=== PATIENT | male | born 1940 | race Caucasian/White ===

== ENCOUNTER → 2019-06-08 11:04 | Outpatient (CLI) | payer MEDICARE, SELFPAY ==
--- NOTE | ~2019-06-08 | XR_ITS ---
EXAMINATION: XR chest 2V DATE: 06/08/2019 11:24 INDICATION: Left chest pain. TECHNIQUE: Frontal and lateral views of the chest were obtained. COMPARISON: Chest 2 views 01/22/2019, chest CT 08/27/2004 FINDINGS: Calcified right lung nodules are consistent with old granulomatous disease. There is mild a telectasis versus scarring in the lower lung zones. No pleural effusion or pneumothorax. The heart si ze is normal. IMPRESSION: 1. Mild atelectasis versus scarring in the lower lung zones. Reviewed, dictated and finalized at location B. R HOUSE SUPERVISOR
== END ==
PROVIDERS: PCP Family Medicine; Visit Provider Family Medicine
DX: R07.89 Other chest pain (principal); R91.8 Other nonspecific abnormal finding of lung field
CPT/HCPCS: 71046

== ENCOUNTER 2020-05-08 08:38 | Outpatient (CLI) | payer MEDICARE, SELFPAY ==
--- NOTE | ~2020-05-08 | NM_ITS ---
EXAMINATION: NM bone scan whole body DATE: 05/08/2020 12:39 INDICATION: Prostate cancer TECHNIQUE: 23.6 mCi Tc-99m HDP was administered intravenously. Delayed whole-body scintigrams were o btained. COMPARISON: CT dated 05/08/2020 FINDINGS: Photopenic defect at the left knee consistent with a total knee arthroplasty. Likely degenerative gloria nt centered uptake most prominent at the bilateral carpi and a left-sided lower cervical facet joint and to a lesser degree at the lateral compartment of the right knee, right medial malleolus and bilat eral elbow, acromioclavicular and sternoclavicular articulations. Mild uptake bilaterally at the lumb osacral junction likely resulting from the L5 spondylolysis with severe associated spondylosis as see n on prior CT. No other suspicious foci to suggest metastatic disease. IMPRESSION: 1. No evident metastatic disease. Reviewed, dictated and finalized at location A. ELIFT OPERATOR
--- NOTE | ~2020-05-08 | CT_ITS ---
EXAMINATION: CT abdomen pelvis w con EXAM DATE: 05/08/2020 09:19 INDICATION: Prostate cancer. TECHNIQUE: Spiral CT of the abdomen and pelvis was performed following intravenous injection of 100 m L Omnipaque 350. Axial, coronal and sagittal images were reviewed. The dose-length product (DLP) fo r this examination was 755.74 mGy-cm. The exposure was tailored according to patient size (auto mA e xposure control), and iterative reconstruction (ASIR) was used as additional dose reduction technique . There is no prior study for comparison. FINDINGS: Mild nodularity to both adrenal glands, most likely hyperplasia or possibly small adenomas. The liver, spleen, adrenal glands and pancreas are unremarkable. Gallbladder is unremarkable. No biliary obstruction. Portal and splenic veins are patent. Kidneys enhance symmetrically. There is no hydronephrosis. The prostate is unremarkable. The bladder is unremarkable. There is no retrope ritoneal or pelvic lymphadenopathy. There is moderate scattered arteriosclerotic disease. The appendix is normal. The stomach and small bowel are unremarkable. There is expected amount of c olonic stool. There is moderate sigmoid colonic diverticulosis. There is no adjacent inflammatory ch crystal to suggest diverticulitis. No free intraperitoneal gas. The heart is normal in size. There a re no pericardial or pleural effusions. Bibasilar linear scarring or atelectasis. There are no oste oblastic or osteolytic lesions identified. There is bilateral L5 spondylolysis with grade 2 anterolis thesis L5 on S1. Healed bilateral inferior rami fractures. IMPRESSION: 1. No evidence of metastatic disease. 2. Sigmoid diverticulosis. Reviewed, dictated and finalized at location A. CLEANER OPERATOR
--- NOTE | ~2020-05-08 | XR_ITS ---
EXAMINATION: XR chest 2V EXAM DATE: 05/08/2020 09:04 INDICATION: Prostate cancer. TECHNIQUE: Frontal and lateral projections of the chest obtained and reviewed. Comparison is made to prior examination from 06/08/2019. FINDINGS: Small linear basilar opacities unchanged, probably scarring. Several calcified right upper lobe granulomas. The lungs are otherwise clear. Cardiomediastinal silhouette is normal. There is no pneumothorax suspected. There are no pleural effusions. There are mild bony degenerative changes. The re are no osteoblastic or osteolytic lesions identified. IMPRESSION: Chronic infectious residua. Reviewed, dictated and finalized at location A. EMS INTEGRATION MANAGER IMPRESSION: Chronic infectious residua.
[2020-05-08 09:12] LABS: Estimated Glomerular Filt Rate > 60
== END 2020-05-08 08:39 | disposition home or self-care (01) ==
PROVIDERS: PCP Family Medicine; Visit Provider Urology
DX: C61 Malignant neoplasm of prostate (principal); K57.30 Diverticulosis of large intestine without perforation or abscess without bleeding
CPT/HCPCS: 71046; 74177; 78306; A9561; Q9967

== ENCOUNTER 2020-06-23 11:47 | Outpatient (CLI) | payer MEDICARE, SELFPAY ==
--- NOTE | 2020-06-23 12:44 | ECG_ITS ---
Measurements Intervals [place] Rate: 61 P: 27 ME: 127 QRS: 36 QRSD: 87 T: 41 QT: 397 QTc: 401 Interpretive Statements SINUS RHYTHM ATRIAL PREMATURE COMPLEXES INCOMPLETE RIGHT BUNDLE BRANCH BLOCK BASELINE ARTIFACT- I, III, AVR, AVL, V3 BORDERLINE ECG Electronically Signed On 06-23-2020 13:24:24 COMPRESSOR STATION OPERATOR by Max Hernandez D.O.
[2020-06-23 13:12] LABS: Basophils Percent Auto 0.3 % (0.2-1.2); Eosinophils Absolute Auto 0.1 K/mm3 (0-0.3); Hematocrit 48.2 % (42.0-52.0); Hemoglobin 15.9 g/dL (14.0-18.0); Immature Granulocyte Absolute 0.03 K/mm3 (0.00-0.031); Immature Granulocyte Percent A 0.4 % (0-0.5); Lymphocytes Absolute Auto 1.47 K/mm3 (0.9-3.2); Lymphocytes Percent Auto 20.3 % (18.3-44.2); Mean Corpuscular Hemoglobin 31.7 pg (26-34); Mean Platelet Volume 9.2 fl (7.4-10.4); Monocytes Absolute Auto 0.6 K/mm3 (0.1-0.6); Monocytes Percent Auto 8.3 % (2.6-8.5); Neutrophils Percent Auto 69.7 % (45.5-73.1); Platelet Count Result 218 k/mm3 (150-375); Red Blood Count 5.02 M/mm3 (4.6-6.20); White Blood Count 7.2 K/mm3 (4.5-10.0)
[2020-06-23 13:17] LABS: Prothrombin Time 13.3 Seconds (11.1-14.7)
[2020-06-23 13:18] LABS: Alanine Aminotransferase 14 U/L (4-50); Albumin Level 3.8 g/dL (3.5-5.1); Alkaline Phosphatase 63 U/L (38-126); Anion Gap 3 mmol/L (8-16); Aspartate Amino Transferase 24 U/L (17-59); Bilirubin,Total 0.4 mg/dL (0.2-1.3); Blood Urea Nitrogen 17 mg/dL (9-20); Calcium 8.9 mg/dL (8.4-10.2); Carbon Dioxide 31 mmol/L (22-30); Chloride 104 mmol/L (98-107); Estimated Glomerular Filt Rate > 60; Glucose 93 mg/dL (75-110); Partial Thromboplastin Time 24.7 SECONDS (22.3-36.8); Potassium 4.3 mmol/L (3.4-5.0); Sodium 138 mmol/L (137-145)
[2020-06-23 13:19] LABS: Add Urine Microscopic? YES; Appearance Urine Clear (Clear); Bilirubin Urine Negative (Negative); Blood Urine 1+ (Negative); Color Urine Straw (Yellow); Glucose Urine UA Negative (Negative); Ketones Urine Negative (Negative); Leukocyte Esterase Ur Negative LEU/UL (Negative); Nitrate Urine Negative (Negative); Protein Urine Negative (Negative); Specific Grav Ur 1.015 (1.001-1.035); Urobilinogen Urine Negative mg/dL (<2.0); WBC Urine 0-3 /hpf
== END 2020-06-23 11:48 | disposition home or self-care (01) ==
LOC: ANHSURGERY 11:51
PROVIDERS: Nurse Practitioner Family; PCP Family Medicine; Visit Provider Urology
DX: L03.90 Cellulitis, unspecified (principal); C61 Malignant neoplasm of prostate; I45.10 Unspecified right bundle-branch block
CPT/HCPCS: 36415; 80053; 81001; 85025; 85610; 85730; 86850; 86900; 86901; 93005

== ENCOUNTER 2020-06-30 00:23 | Outpatient (CLI) | payer MEDICARE, SELFPAY ==
[2020-06-30 18:26] LABS: SARS-CoV-2 RNA PCR Negative
== END 2020-06-30 00:24 | disposition home or self-care (01) ==
LOC: ANHCOVIDDT 00:23
PROVIDERS: Family Provider Family Medicine; PCP Family Medicine; Visit Provider Urology
DX: Z01.812 Encounter for preprocedural laboratory examination (principal); Z20.822 Contact with and (suspected) exposure to COVID-19
CPT/HCPCS: C9803; U0003; U0005

== ENCOUNTER 2020-07-03 00:16 | Day surgery (SDC) | payer MEDICARE, SELFPAY ==
[2020-06-23 12:19] VITALS: BP 166/92; PULSE 60; RESP 20; TEMP 36.7; O2SAT 95; BMI 20.9
--- NOTE | 2020-06-25 13:45 | P.HP_ITS ---
H&P: HPI History of Present Illness Date/Time: 06/25/20 13:45 Chief Complaint: Prostate cancer Narrative: Jelani Joy is a 79 year old male recently presented with a PSA of 4.5. Prostate biopsy revealed 12 of 12 cores with Toni 7 8 and [address] abd/pelvis w/ contrast, bone scan and chest x-ray were unremarkable. After discussion of therapeutic options (including radiation therapy and various forms, active surveillance, androgen ablation and robotic prostatectomy), he has elected for the latter. he is aware there is risk of the procedure including, but not limited to, adverse cardiopulmonary events, fair to control his cancer, need for adjuvant therapy, rectal injury, urinary incontinence and erectile dysfunction. Review of Systems Cardiovascular: Cardiovascular: Denies chest pain, Denies lightheadedness, Denies palpitations and Denies dyspnea Respiratory: Respiratory: Denies dyspnea Gastrointestinal: Gastrointestinal: Denies diarrhea, Denies nausea and Denies vomiting Genitourinary: Genitourinary: Denies hematuria and Denies dysuria Endocrine: Endocrine: Denies palpitations PMFSH Past Medical History Medical History Essential (primary) hypertension Mixed hyperlipidemia Prostate nodule Family History Family History Mother Family history of malignant neoplasm Grandparent Family history of malignant neoplasm Sibling Family history of malignant neoplasm Father Family history of heart disease in male family member before age 55 Social History Social History Smoking packs per day: 1 Smoking cigarettes per day: 20.0 Years smoked: 55 Smoking pack-years: 55.00 Smoking status: Former smoker Tobacco type: cigarettes Second hand tobacco smoke exposure: Yes Additional smoking assessment comments: QUIT 2014 Alcohol intake: current Drinks per week: 7 Substance use: never Substance use type: does not use Spiritual care concerns: No Meds Home Medications and Allergies Home Medications Medication Instructions Recorded Confirmed Type acetaminophen [Tylenol Arthritis] 650 mg PO HS 06/23/20 06/23/20 History aspirin [Adult Aspirin Regimen] 81 mg PO DAILY 06/23/20 06/23/20 History metoprolol tartrate 12 mg PO DAILY 06/23/20 06/23/20 History Allergies Allergy/AdvReac Type Severity Reaction Status Date / Time No Known Allergies Allergy Verified 06/23/20 12:14 Exam Const: General: no acute distress Resp: Effort & Inspection: normal respiratory effort GI: Inspection: non-distended GI Palp: No abdominal tenderness and No Guarding due to palpation present (GI) Auscultation: normal bowel sounds Assessment and Plan Assessment and plan (1) Prostate cancer: Code(s): C61 - Malignant neoplasm of prostate Status: Acute Assessment and Plan: * Robotic assisted laparoscopic prostatectomy and bilateral pelvic lymphadenectomy
--- NOTE | 2020-07-02 13:37 | WPDANESEPPF ---
Anes - Initial Pre Proc Eval Procedure: Operation Date: 07/03/20 07:30 Proposed Procedures p Robotic Assisted Laparoscopic Prostatectomy with Bilateral Pelvic Lymph Node Dissection - Catalino Judge MD Date/Time: 07/02/20 13:37 Surgeon: Catalino Judge MD Pre Op Diagnosis: prostate CA Patient Data Age: 79 Gender: M Height: 1.83 m Weight: 69.9 kg Last Vital Signs Temp 36.7 C 06/23/20 12:19 Pulse 60 06/23/20 12:19 Resp 20 06/23/20 12:19 BP 166/92 H 06/23/20 12:19 Pulse Ox 95 06/23/20 12:19 Allergies Allergy/AdvReac Type Severity Reaction Status Date / Time No Known Allergies Allergy Verified 07/03/20 06:10 Home Medications Medication Instructions Recorded Confirmed Type acetaminophen [Tylenol Arthritis] 650 mg PO HS 06/23/20 07/03/20 History aspirin [Adult Aspirin Regimen] 81 mg PO DAILY 06/23/20 07/03/20 History metoprolol tartrate 12 mg PO DAILY 06/23/20 07/03/20 History ECG: Date of Service: 06/23/20 Procedure(s): CA 12 lead EKG Accession Number(s): [id number] cc: ~ Measurements Intervals [place] Rate: 61 P: 27 ME: 127 QRS: 36 QRSD: 87 T: 41 QT: 397 QTc: 401 Interpretive Statements SINUS RHYTHM ATRIAL PREMATURE COMPLEXES INCOMPLETE RIGHT BUNDLE BRANCH BLOCK BASELINE ARTIFACT- I, III, AVR, AVL, V3 BORDERLINE ECG Electronically Signed On 06-23-2020 13:24:24 REMOTE MEDICAL CODER by Max Hernandez D.O. Dictated By: Max Hernandez DO 06/23/20 1317 Patient hx anesthesia problems: none Family hx anesthesia problems: none PMFSH Past Medical History Medical History (Updated 07/02/20 @ 13:38 by Cristopher Nunes MD) Essential (primary) hypertension Mixed hyperlipidemia Prostate cancer Prostate nodule Family History Family History Mother Family history of malignant neoplasm Grandparent Family history of malignant neoplasm Sibling Family history of malignant neoplasm Father Family history of heart disease in male family member before age 55 Social History Social History Smoking packs per day: 1 Smoking cigarettes per day: 20.0 Years smoked: 55 Smoking pack-years: 55.00 Smoking status: Former smoker Tobacco type: cigarettes Second hand tobacco smoke exposure: Yes Additional smoking assessment comments: QUIT 2014 Alcohol intake: current Drinks per week: 7 Substance use: never Substance use type: does not use Living arrangements: with family Spiritual care concerns: No Anes - Eval Final PreProcedure Day of Procedure 07/02/20 13:37 Patient weight: obese Heart: regular rate and rhythm Lungs: clear to auscultation and normal air movement Airway: Mallampati scale class II Neurological: alert and oriented Last oral intake: >/= 8 hours ASA classification: III Emergent: no Anesthetic plan: proceed Anesthesia type and monitoring: general ETT Informed Consent: The patient's anesthetic plan and its attendant risks and benefits were discussed with the patient/family/POA. Questions were solicited and answers provided to the satisfaction of the patient/family/POA.
[2020-07-03] VITALS (15 sets, daily range): BP systolic 83–160; BP diastolic 49–86; PULSE 50–119; RESP 10–20; TEMP 36.5–36.9; O2SAT 92–97; BMI 28.1; BMI 28.8
--- NOTE | 2020-07-03 06:25 | WPDHPUPDATE1 ---
History and Physical Update Update Date/Time: 07/03/20 06:25 History and Physical has been reviewed, including an updated exam of the patient. There are NO changes in the patient's condition. Risks, benefits, and alternatives have been discussed and questions answered. Patient agrees to proceed with procedure.
[2020-07-03] MEDS: LACTATED RINGERS 1,000 ML 30 ML IV CONT ×2 (07:03→10:38)
[2020-07-03] MEDS: ceFAZolin 2 GM/D5W 50 ML 2 GM/50 ML BAG IVPB (07:27)
--- NOTE | 2020-07-03 10:35 | PM.PROC ---
Procedure Note - Detailed Date of procedure: 07/03/20 Pre-op diagnosis: Prostate CA Procedure performed: 1. Robotic-assisted, radical retropubic prostatectomy. 2. Robotic-assisted bilateral pelvic lymphadenectomy. Description of procedure: The patient was brought to the operative suite, where he was prepped and draped in routine sterile fashion while in a dorsal lithotomy, deep Trendelenburg position. A supraumbilical 10 mm trocar was placed after insufflation of the abdomen with a Veress needle. Three robotic ports were then placed under direct vision. Two of these were placed in the right lower quadrant - 10 cm and 20 cm lateral to, and in line with, the umbilicus. A third robotic trocar was placed 10 cm to the left of the umbilicus, and 20 cm to the left of the umbilicus, a 12 mm standard laparoscopic trocar was placed to be used as an licensed sales assistant port. Lastly, a 5 mm trocar was placed in the left upper quadrant midway between the umbilicus and the left robotic trocar. Attention was then turned to the prostatectomy. I opted for a posterior approach in this patient. An incision was made in the parietal peritoneum along the posterior bladder/posterior prostate about 2 cm above the reflection of the peritoneum over the anterior rectum. The seminal vesicles and vas deferens were immediately identified. Dissection is undertaken in a fashion so as to avoid electrocautery as much as possible, particularly near the tips of the seminal vesicles. Dissection was also carried out in the midline so as to avoid any encounters with the ureters. The vas deferens and the seminal vesicles were dissected in their entirety to the base of the prostate. The plane anterior to Denoviller's fascia, anterior to the rectum and posterior to the prostate was then developed. I then dropped the bladder by incising the anterior parietal peritoneum just lateral to the median umbilical ligaments bilaterally. The bladder was dropped from the anterior abdominal and pelvic wall. The endopelvic fascia was identified and incised bilaterally, allowing for dissection of the posterior-lateral aspect of the prostate. The puboprostatic ligaments were transected near their origin from the posterior pubic ramus. This posterior lateral dissection of the prostate is also undertaken in a fashion so as to avoid electrocautery as much as possible. The dorsal vein of the penis is then secured with an 0 -Vicryl ligature. Attention is then turned to the bladder neck. The anterior bladder neck is incised at the vesico-prostatic junction. The previously placed urethral catheter was drawn through the urethrotomy. A very small bladder neck was maintained throughout the remainder of this dissection. The posterior bladder neck was incised in a fashion so as to avoid any injury to the ureteral orifices. Again, the small aperture of the bladder neck was maintained. The previously dissected vas deferens and the seminal vesicles were brought through the posterior bladder neck incision. The lateral prostatic pedicles were then carefully dissected from the lateral aspect of the prostate bilaterally. The prostatic pedicles were secured with Weck clips and transected. The neurovascular bundles were carefully dissected from the posterior-lateral aspect of the prostate. The dorsal vein of the penis was incised with electrocautery. Using cold scissors, the urethra was incised. After withdrawing the previously placed urethral catheter, the posterior urethra was sharply incised, as was the rectalurethralis muscle. Attention was then turned to a bilateral pelvic lymphadenectomy. The limits of this dissection were similar bilaterally. Specifically, the limits were the bifurcation of the common iliac vein proximally, the inguinal ligament distally, the obturator nerve posteriorly and the anterior aspect to the external iliac vein laterally. This dissection was undertaken with care to avoid any injury to the obturator nerve.
--- NOTE | 2020-07-03 12:05 | SUR.PHASEI ---
1130 called [facility] for a room but thye have no rooms yet. pt is doing ok no complaints, vss.
--- NOTE | 2020-07-03 12:44 | SUR.PHASEI ---
1230 pt moved to op recovery #17 while waiting for room on [facility]. lunch tray ordered. pt yvonne, ursulas.
--- NOTE | 2020-07-03 14:00 | SUR.PHASEI ---
PT WAS BROUGHT TO ROOM 17 TO HANG OUT UNTIL ROOM WAS CLEAN UPSTAIRS. VITALS HAVE BEEN STEADY AND PT ATE LUNCH.
--- NOTE | 2020-07-03 14:31 | ADMGEN ---
This patient, Jelani Joy, was admitted to Medical Room 247-. Patient/family oriented to hospital policies and general routines including ID bracelet, bed and alarms, visiting hours, pain management, procedures, bathroom and other care routines, personal items, smoking policy, room service/diet, and visiting hours. Information on how to activate the Rapid Response Team has been discussed. Patient/Family are encouraged to report perceived risks to care and to ask questions if they do not understand what they are told or what they should do.
[2020-07-03] MEDS: LACTATED RINGERS 1,000 ML 125 ML IV CONT (14:53)
[2020-07-03] MEDS: SODIUM CHLORIDE 0.9% IV 500 ML IV CONT (16:53)
[2020-07-03 16:55] LABS: Hemoglobin 13.3 g/dL (14.0-18.0)
[2020-07-03] MEDS: ACETAMINOPHEN 325 MG TABLET 650 MG PO (22:06)
[2020-07-04 01:18] VITALS: BP 116/58; PULSE 84; RESP 16; TEMP 36.9; O2SAT 92
[2020-07-04 05:03] VITALS: BP 118/66; PULSE 82; RESP 16; TEMP 36.5; O2SAT 91
[2020-07-04 06:12] LABS: Anion Gap 3 mmol/L (8-16); Blood Urea Nitrogen 23 mg/dL (9-20); Calcium 7.7 mg/dL (8.4-10.2); Carbon Dioxide 28 mmol/L (22-30); Chloride 104 mmol/L (98-107); Estimated CRCL calculation 55 ml/min; Estimated Glomerular Filt Rate > 60; Glucose 110 mg/dL (75-110); Potassium 4.4 mmol/L (3.4-5.0); Sodium 135 mmol/L (137-145)
[2020-07-04] MEDS: ACETAMINOPHEN 325 MG TABLET 650 MG PO (06:45)
--- NOTE | 2020-07-04 07:32 | WPDUROPN2 ---
Progress Note: A&P Assessment and Plan (1) Prostate cancer: Code(s): C61 - Malignant neoplasm of prostate Status: Acute Assessment and Plan: Doing well POD #1 Increase diet/ambulation this morning. Anticipate discharge this afternoon. Subjective Subjective Date/Time Seen: 07/04/20 07:32 POD #1 RALP Comfortable, tolerating diet Review of Systems Cardiovascular: Cardiovascular: Denies chest pain, Denies lightheadedness, Denies palpitations and Denies dyspnea Respiratory: Respiratory: Denies dyspnea Gastrointestinal: Gastrointestinal: Denies diarrhea, Denies nausea and Denies vomiting Genitourinary: Genitourinary: Denies hematuria and Denies dysuria Endocrine: Endocrine: Denies palpitations Exam Const: General: no acute distress Resp: Effort & Inspection: normal respiratory effort GI: Inspection: normal to inspection, non-distended and other (incisions clean and dry) GI Palp: No abdominal tenderness and No Guarding due to palpation present (GI) Auscultation: normal bowel sounds Urinary Catheter: Urinary Catheter: patent and draining and urine clear Objective Data Vital Signs Vital Signs: Vital Signs - 24 hr 07/03/20 10:40 07/03/20 10:55 07/03/20 11:10 Temperature 97.7 F Pulse Rate 72 61 71 Respiratory Rate 12 10 L 12 Blood Pressure 149/86 H 160/80 H 137/86 Pulse Oximetry 96 96 95 07/03/20 11:25 07/03/20 11:40 07/03/20 11:55 Temperature Pulse Rate 66 71 55 L Respiratory Rate 12 13 12 Blood Pressure 149/80 H 137/66 145/77 H Pulse Oximetry 94 93 94 07/03/20 12:35 07/03/20 13:05 07/03/20 13:35 Temperature Pulse Rate 71 80 79 Respiratory Rate 14 14 14 Blood Pressure 144/70 H 146/79 H 142/77 H Pulse Oximetry 07/03/20 14:46 07/03/20 16:05 07/03/20 16:06 Temperature 97.9 F 98.1 F Pulse Rate 78 74 92 Respiratory Rate 13 20 Blood Pressure 116/64 109/57 L 83/61 L Pulse Oximetry 95 92 07/03/20 18:51 07/03/20 18:52 07/04/20 01:18 Temperature 98.5 F 98.5 F Pulse Rate 101 H 119 H 84 Respiratory Rate 19 16 Blood Pressure 109/54 L 95/49 L 116/58 L Pulse Oximetry 93 92 07/04/20 05:03 Temperature 97.7 F Pulse Rate 82 Respiratory Rate 16 Blood Pressure 118/66 Pulse Oximetry 91 Intake/Output Intake/Output: Intake & Output 07/01/20 07/02/20 07/03/20 07/04/20 23:59 23:59 23:59 23:59 Intake Total 2540 200 Output Total 350 400 Balance 2190 -200 Meds/Results Medications: Active Medications Generic Name Dose Route Start Last Admin Trade Name Freq PRN Reason Stop Dose Admin Acetaminophen 650 mg 07/03/20 21:19 07/04/20 06:45 Acetaminophen 325 Mg Tablet PO 650 mg Q6H PRN Administration Mild Pain (1-3) or Fever Hydrocodone Bitart/Acetaminophen 1 - 2 tab 07/04/20 07:29 Hydrocodone/Acetaminophen (*Crx) 5-325 Mg Tablet PO Q6H PRN Pain Rated 4-6 Hyoscyamine 0.125 mg 07/03/20 14:01 Hyoscyamine Sulfate 0.125 Mg Tablet SUBLINGUAL Q4H PRN Bladder Spasm Levofloxacin 500 mg 07/04/20 09:00 Levofloxacin Tab 500 Mg Tablet PO DAILY MARGARET Metoprolol Tartrate 12.5 mg 07/04/20 09:00 Metoprolol Tartrate 12.5 Mg Tablet PO DAILY MARGARET Morphine Sulfate 2 mg 07/03/20 21:20 Morphine Sulfate (*Crx) 2 Mg/Ml Inj IV PUSH Q2H PRN Breakthrough Pain Naloxone HCl 0.1 mg 07/03/20 14:01 Naloxone Hcl 0.4 Mg/Ml Vial IV PUSH Q2M PRN Opiate Reversal Ondansetron HCl 4 mg 07/02/20 13:34 Ondansetron Inj 4 Mg/2 Ml Vial IV PUSH ONCE PRN Nausea Oxycodone HCl 5 mg 07/02/20 13:34 Oxycodone Hcl (*Crx) 5 Mg Tab Ir PO ONCE PRN Pain Labs Labs: Laboratory Results - last 24 hr 07/03/20 07/04/20 16:50 04:59 Hgb 13.3 L Hct 40.0 L Sodium 135 L Potassium 4.4 Chloride 104 Carbon Dioxide 28 Anion Gap 3 L BUN 23 H Creatinine 1.10 Estim Creat Clear Calc 55 Estimated GFR > 60 Glucose 110 Calcium 7.
[2020-07-04 09:00] VITALS: BP 135/75; PULSE 84; RESP 16; TEMP 36.4; O2SAT 96
[2020-07-04 09:18] VITALS: PULSE 76
[2020-07-04] MEDS: METOPROLOL TARTRATE 12.5 MG TABLET PO (09:18)
--- NOTE | 2020-07-04 09:23 | WPDANESPN ---
Anes - Prog Note Post-Op Date/Time: 07/04/20 09:23 Cardiovascular status: normal Respiratory status: normal Airway patency: baseline Mental status: baseline Post-Op hydration status: normal Vital Signs: Last Vital Signs Temp 36.5 C 07/04/20 05:03 Pulse 76 07/04/20 09:18 Resp 16 07/04/20 05:03 BP 118/66 07/04/20 05:03 Pulse Ox 91 07/04/20 05:03 Pain Score (VAS): 0 I/O: Intake & Output 07/03/20 07/04/20 07/04/20 23:59 07:59 15:59 Intake Total 1990 200 Output Total 275 400 Balance 1715 -200 Laboratory Tests 07/03/20 16:50 07/04/20 04:59 07/03/20 07/04/20 16:50 04:59 Hgb 13.3 L Hct 40.0 L Sodium 135 L Potassium 4.4 Chloride 104 Carbon Dioxide 28 Anion Gap 3 L BUN 23 H Creatinine 1.10 Estim Creat Clear Calc 55 Estimated GFR > 60 Glucose 110 Calcium 7.7 L Post-procedural complaints: none Patient Feedback: Patient satisfied with anesthetic care.
[2020-07-04] MEDS: HYDROcodone/acetaminophen (*CRX) 5-325 MG TABLET PO (09:25)
--- NOTE | 2020-07-04 12:57 | PM.DS ---
DS: Admitting Diagnosis Admitting Diagnosis Admitting Diagnosis: Prostate cancer DS: Summary Hospital Course Hospital Course: This patient was admitted on the morning of his planned robotic prostatectomy. This procedure was uneventful, as was his postoperative course. By the evening of the procedure he was sitting at the bedside in tolerating a liquid diet. The following morning he was ambulating freely and tolerating regular food. His catheter drainage remained essentially clear throughout. His postoperative hemoglobin and serum creatinine were unremarkable. At the time of discharge he has been instructed in appropriate care for his Nagy catheter with both a leg bag and bedside bag. He will be discharged with plans to follow-up in 1 week with a cystogram. Time Spent with Patient Time attestation: Total time spent providing and/or coordinating discharge services: 15 min. Exam Const: General: no acute distress Resp: Effort & Inspection: normal respiratory effort GI: Inspection: non-distended GI Palp: No abdominal tenderness and No Guarding due to palpation present (GI) Auscultation: normal bowel sounds DS: Data Data Completed and Pending Pending studies at discharge: Pending at discharge 07/03/20 10:16 Surgical [PTH] Routine Labs on day of discharge: Labs from last 24 hours 07/04/20 07/03/20 04:59 16:50 Hgb 13.3 L Hct 40.0 L Sodium 135 L Potassium 4.4 Chloride 104 Carbon Dioxide 28 Anion Gap 3 L BUN 23 H Creatinine 1.10 Estim Creat Clear Calc 55 Estimated GFR > 60 Glucose 110 Calcium 7.7 L Discharge Plan Discharge Patient Disposition: Home, Self-Care Discharge Instructions: 1) Nagy catheter -> leg bag / bedside bag at night. 2) No lifting/straining >15lbs. x3 weeks. 3) No driving x1-week. 4) Resume normal, pre-operative diet. 5) My office will contact regarding follow-up in 1-week with cystogram. Stand Alone Forms: General Discharge Instructions Discharge Orders: Discharge Order (Routine); Ordered 07/04/20 Ordered By: Catalino Judge Discharge Medications: New hydrocodone-acetaminophen 5-325 mg tablet 1 - 2 tablet PO Q6H PRN (Reason: pain) Qty: 20 RF: 0 ciprofloxacin HCl 500 mg tablet 500 mg PO Q12H Qty: 10 RF: 0 hyoscyamine sulfate 0.125 mg tablet 0.125 mg PO Q6H PRN (Reason: bladder spasms) Qty: 20 RF: 2 docusate sodium [Colace] 100 mg capsule 100 mg PO DAILY Qty: 30 RF: 0 Continued acetaminophen 650 mg Tablet Extended Release 650 mg PO HS RF: 0 metoprolol tartrate 25 mg tablet 12.5 mg PO DAILY RF: 0 Held aspirin [Adult Aspirin Regimen] 81 mg Tablet,Delayed Release (Dr/Ec) 81 mg PO DAILY RF: 0 Hold Instructions: Resume on 07/09/20.
== END 2020-07-04 13:55 | disposition home or self-care (01) ==
LOC: ANHSURGERY 12:12 → ANH2MED 14:02
PROVIDERS: Family Provider Family Medicine; PCP Family Medicine; Visit Provider Urology
PROC: 0VT04ZZ Resection of Prostate, Percutaneous Endoscopic Approach (ICD-10-PCS; CPT 55867; principal; 2020-07-03 07:30)
DX: C61 Malignant neoplasm of prostate (principal); I10 Essential (primary) hypertension; Z87.891 Personal history of nicotine dependence; Z79.82 Long term (current) use of aspirin; I45.10 Unspecified right bundle-branch block; E66.9 Obesity, unspecified; Z68.28 Body mass index [BMI] 28.0-28.9, adult; C77.5 Secondary and unspecified malignant neoplasm of intrapelvic lymph nodes
CPT/HCPCS: 55866; 38571; S2900; 36415; 80048; 85014; 85018; 88305; 88307; 88309; A9270; J0330; J0690; J1100; J2250; J2405; J2704; J3010; J7030; J7040; J7120; Q9968

== ENCOUNTER 2020-07-10 08:16 | Outpatient (CLI) | payer MEDICARE, SELFPAY ==
--- NOTE | ~2020-07-10 | XR_ITS ---
EXAMINATION: XR cystogram DATE: 07/10/2020 08:56 INDICATION: Prostate cancer status post prostatectomy. TECHNIQUE: Water-soluble contrast was gravity-infused through the patient's Nagy catheter. Multiple fluoroscopic images were obtained. Fluoroscopy exposure time was 0.2 minutes. The total number of brynn ges was 9. COMPARISON: CT abdomen and pelvis 05/08/2020 FINDINGS: The bladder wall is focally lobulated on the left and right. There is a small volume of ext ravasated contrast at the prostatic urethra. IMPRESSION: 1. Small volume of extravasated contrast at the prostatic urethra. 2. Focal lobulation of the bladder wall on the left and right, which is indeterminate for urothelial carcinoma. 3. I discussed these findings with Dr. Patterson. Reviewed, dictated and finalized at location A. CONTROL MANAGER IMPRESSION: 1. Small volume of extravasated contrast at the prostatic urethra. 2. Focal lobulation of the bladder wall on the left and right, which is indeter minate for urothelial carcinoma. 3. I discussed these findings with Dr. Patterson.
== END 2020-07-10 08:17 | disposition home or self-care (01) ==
PROVIDERS: PCP Family Medicine; Visit Provider Urology
DX: C61 Malignant neoplasm of prostate (principal); R93.41 Abnormal radiologic findings on diagnostic imaging of renal pelvis, ureter, or bladder
CPT/HCPCS: 51600; 74430; Q9967

== ENCOUNTER 2020-11-04 14:26 | Outpatient (CLI) | payer MEDICARE, SELFPAY ==
--- NOTE | ~2020-11-04 | MR_ITS ---
EXAMINATION: MR pelvis wo/w con DATE: 11/04/2020 15:57 INDICATION: Prostate cancer. TECHNIQUE: Magnetic resonance imaging (MRI) of the pelvis was performed without and with 19 mL MultiH ance intravenous contrast. Sequences included axial and coronal FS FIESTA, coronal T2-weighted FS FSE , axial T2-weighted FSE, axial STIR FSE, coronal and axial LAVA, axial dual-echo T1-weighted FSPGR, a nd axial DWI. Postcontrast sequences included coronal LAVA-flex and a time course of axial LAVA. COMPARISON: CT abdomen and pelvis 05/08/2020 FINDINGS: There are changes of prostatectomy. There is a 14 x 10 mm left common iliac lymph node. There is no f ree intraperitoneal fluid. There is diverticulosis of the colon without evidence of diverticulitis. T here are old healed fractures of the bilateral inferior pubic rami. IMPRESSION: 1. Mildly enlarged left common iliac lymph node, which may be reactive or metastatic disease. 2. Prostatectomy. Reviewed, dictated and finalized at location A. IMPRESSION: 1. Mildly enlarged left common iliac lymph node, which may be reactive or metas tatic disease. 2. Prostatectomy.
[2020-11-04 15:13] LABS: Estimated Glomerular Filt Rate > 60
== END 2020-11-04 14:27 | disposition home or self-care (01) ==
PROVIDERS: PCP Family Medicine; Visit Provider Radiology Radiation Oncology
DX: C61 Malignant neoplasm of prostate (principal); R59.1 Generalized enlarged lymph nodes
CPT/HCPCS: 72197; A9577

== ENCOUNTER 2021-01-21 10:01 | Emergency (ER) | payer MEDICARE, SELFPAY ==
--- NOTE | 2021-01-21 10:09 | ED.SKABFB ---
HPI - Skin/Abscess/Foreign Bdy General Chief complaint: Skin/Abscess/Foreign Body Stated complaint: wound Source: patient and RN notes reviewed Mode of arrival: ambulatory History of Present Illness HPI narrative: This is a 80-year-old male that presented to urgent care with complaints of a laceration to his left jones , patient notes he had just left his treatment for prostate cancer and proceeded to the basement to do exercises on his bike he had a certain diarrhea and jumped off his bike in injured his left jones area. Patient denies any other injury. The patient denies SOB, CP, palpitation, extremity numbness, lightheadedness, dizziness, constipation, diarrhea, chills, or fever. Related Data Home Medications Medication Instructions Recorded Confirmed acetaminophen 650 mg PO HS 06/23/20 11/03/20 aspirin [Adult Aspirin Regimen] 81 mg PO DAILY 06/23/20 11/03/20 Allergies Allergy/AdvReac Type Severity Reaction Status Date / Time No Known Allergies Allergy Verified 01/21/21 10:08 Review of Systems Review of Systems: A 14 organ system Review of Systems was performed and pertinent positives included in the HPI, otherwise remaining ROS is negative. [facility] Past Medical History Medical History BMI 29.0-29.9,adult Essential (primary) hypertension Mixed hyperlipidemia Prostate cancer Prostate nodule Surgical History Surgical History History of prostatectomy Family History Family History Mother Family history of malignant neoplasm Grandparent Family history of malignant neoplasm Sibling Family history of malignant neoplasm Father Family history of heart disease in male family member before age 55 Heart disease Social History Social History Smoking packs per day: 1 Smoking cigarettes per day: 20.0 Years smoked: 55 Smoking pack-years: 55.00 Smoking status: Former smoker Tobacco type: cigarettes Second hand tobacco smoke exposure: Yes Additional smoking assessment comments: QUIT 2014 Alcohol intake: current Drinks per week: 7 Substance use: never Substance use type: does not use 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 HEAD: normocephalic, atraumatic. EYES: PERRL. Sclera clear/white. Vision is grossly intact. EARS: External ears normal, auditory canals clear and without drainage, TMs normal without perforation. Hearing grossly intact. NOSE: External nose normal with no obvious nasal discharge, nares without redness, no rhinorrhea. THROAT: Mucous membranes moist, posterior pharynx clear. NECK: Neck supple, non-tender without lymphadenopathy, masses or thyromegaly. CARDIOVASCULAR: Regular rate and rhythm without murmurs, gallops, or rubs. RESPIRATORY: Clear to auscultation. Breath sounds equal bilaterally. No wheezes, rales, or rhonchi. GASTROINTESTINAL: Abdomen soft, non-tender, nondistended. Bowel sounds are active. No hepato-splenomegaly, or palpable masses. No guarding. SKIN: warm, intact with no suspicious lesions or rash, good texture and turgor. 3 cm skin tear to the left jones NEURO: awake, alert, and oriented to person, place and time. There were no obvious focal neurologic abnormalities. Steady gait EXTREMITIES: Normal range of motion. No edema. No calf tenderness. Negative Homans sign bilaterally. BACK: Nontender without deformity or crepitance. No flank tenderness. Course Course Emergency Course: Site clean with wound kettle cleaner triple antibiotic ointment placed on site 4 Steri-Strips placed over site cover with 4 x 4 and Coban plac
[2021-01-21 10:10] VITALS: BP 140/78; PULSE 73; RESP 16; TEMP 36.4; O2SAT 99
[2021-01-21] MEDS: TETANUS,DIPHTHERIA,AC PERTUSSIS ADULT (0.5 ML) BOOSTRIX IM (10:46)
== END 2021-01-21 10:48 | disposition home or self-care (01) ==
PROVIDERS: Emergency Provider Nurse Practitioner; PCP Family Medicine
DX: S81.812A Laceration without foreign body, left lower leg, initial encounter (principal); W22.8XXA Striking against or struck by other objects, initial encounter; Z23 Encounter for immunization; I10 Essential (primary) hypertension; E78.5 Hyperlipidemia, unspecified; C61 Malignant neoplasm of prostate; Z90.79 Acquired absence of other genital organ(s); Z87.891 Personal history of nicotine dependence; Z79.82 Long term (current) use of aspirin
CPT/HCPCS: 90471; 90715; 99212; G0463

== ENCOUNTER 2021-07-29 08:48 | Outpatient (CLI) | payer MEDICARE, SELFPAY ==
--- NOTE | ~2021-07-29 | XR_ITS ---
EXAMINATION: XR hip LT min 3V w AP pelvis INDICATION: Left hip pain TECHNIQUE: AP view the pelvis and three views of the left hip are obtained. COMPARISON: CT, 05/08/2020 FINDINGS: Bone alignment is normal. No acute fracture is identified. There appears to be an old heale d fracture of the left inferior pubic ramus. There is mild osteoarthritis of the hips. Phleboliths ar e noted pelvis. There is calcified atherosclerosis. IMPRESSION: 1. No acute osseous abnormality. Reviewed, dictated and finalized at location A. HEAD MAT INSPECTOR
--- NOTE | ~2021-07-29 | XR_ITS ---
EXAMINATION: XR knee LT min 4V DATE: 07/29/2021 09:16 INDICATION: Left knee pain TECHNIQUE: Four views of the left knee were obtained. COMPARISON: None. FINDINGS: There are changes of total knee arthroplasty. The hardware appears to be intact. No fractur e is identified. No joint effusion/synovitis. Soft tissues are unremarkable. IMPRESSION: 1. Changes of left knee arthroplasty without acute osseous abnormality. Reviewed, dictated and finalized at location A. HELPER
== END 2021-07-29 08:49 | disposition home or self-care (01) ==
PROVIDERS: PCP Family Medicine; Visit Provider Family Medicine
DX: M25.552 Pain in left hip (principal); M25.562 Pain in left knee; G89.29 Other chronic pain; Z96.652 Presence of left artificial knee joint
CPT/HCPCS: 73502; 73564

== ENCOUNTER 2022-05-18 08:18 | Outpatient (CLI) | payer MEDICARE, SELFPAY ==
--- NOTE | 2022-05-18 08:20 | ECG_ITS ---
Measurements Intervals Guys Rate: 63 P: 35 GA: 153 QRS: 43 QRSD: 71 T: 33 QT: 388 QTc: 399 Interpretive Statements SINUS RHYTHM WITH SINUS ARRHYTHMIA COMPARED TO ECG 06/23/2020 13:17:26 SINUS ARRHYTHMIA NOW PRESENT Electronically Signed On 05-18-2022 16:27:59 RACECAR DRIVER by Aaron Irizarry M.D.
== END 2022-05-18 08:19 | disposition home or self-care (01) ==
PROVIDERS: PCP Family Medicine; Visit Provider Urology
DX: I10 Essential (primary) hypertension (principal); I49.8 Other specified cardiac arrhythmias
CPT/HCPCS: 93005

== ENCOUNTER 2022-05-20 00:20 | Day surgery (SDC) | payer MEDICARE, SELFPAY ==
--- NOTE | 2022-05-17 15:06 | PC.NURSE ---
Report to the Outpatient Waiting Room, entrance under the green pavilion located off [facility], at time __729 on date __05/20/22 . Planned Procedure Time: __929 . Time changes happen often and if your time is changed the preop area will call you the afternoon before. - You and your visitor will be asked to self-screen and do not enter if you have any COVID symptoms. - Only one visitor is requested with a max of two and NO children visitors are allowed at this time. - The patient visitor may be requested to leave or wait in car when not with patient due to distancing restrictions. - A mask is optional within the hospital. Patients may have clear liquids (water, carbonated beverages, clear teas, apple juice) until 3 hours prior to surgery with a maximum of 20 ounces. - No food from midnight until time of surgery - Infants may have breast milk until 4 hours before surgery, formula 6 hours prior to surgery. - Children will be allowed to drink immediately following surgery. If applicable, please bring a bottle or sippy cup to assist with drinking. Juice, water, soda, and popsicles are readily available. For infants on formula, please bring formula the day of surgery. Pacifiers are allowed. Take the following medications with a SIP of water the morning of surgery: ____METOPROLOL Medications to discontinue per physician ASPIRIN PER DR COHEN Date to take last dose Please no make-up, nail french, hairspray, perfume, deodorant, or body powder the day of surgery. No jewelry (including any body piercings) or valuables the day of surgery, leave them at home. Please take a shower or bath the night before, or the morning of, surgery with an antibacterial soap. Wear comfortable, loose fitting clothing. Children are encouraged to wear pajamas. - Jewelry must be removed prior to entering the operating room. Rings and piercings that are not removed may be cut off. - The hospital will not accept responsibility for valuables. - Please leave all valuables, including medications, at home the day of surgery. If you are going home after surgery, a licensed transportation driver must drive you home. - NO public transportation without another adult if you receive anesthesia. - We recommend that an adult stay with you for 24 hours following discharge. - We also recommend that you do not drive, make important decision, drink alcoholic beverages, or take any drugs that were not prescribed by your health care provider for at least 24 hours after your discharge time. For Pediatric surgeries, we recommend two adults accompany the child home. Follow any additional instructions given to you from your surgeon. If you or anyone in your household have experienced Covid symptoms in the past week, please notify your surgeon or the nurse liaison at the phone number below for possible testing. Telephone instructions given to ____PATIENT and asked if any additional questions and then verbalized understanding. Patient advised to call surgeon office or pre surgery nurse liaison [phone] if any additional questions.
[2022-05-17 15:14] VITALS: BMI 29.2
--- NOTE | 2022-05-20 06:33 | WPDHPUPDATE1 ---
History and Physical Update Update Date/Time: 05/20/22 06:33 History and Physical has been reviewed, including an updated exam of the patient. There are NO changes in the patient's condition. Risks, benefits, and alternatives have been discussed and questions answered. Patient agrees to proceed with procedure.
[2022-05-20 07:45] VITALS: BP 152/71; PULSE 58; RESP 16; TEMP 36.6; O2SAT 97
--- NOTE | 2022-05-20 08:15 | WPDANESEPPF ---
Anes - Initial Pre Proc Eval Procedure: Operation Date: 05/20/22 09:30 Proposed Procedures p Cystoscopy with Macroplastique Injection - Catalino Judge MD Date/Time: 05/20/22 08:15 Surgeon: Catalino Judge MD Pre Op Diagnosis: Prostate CA Patient Data Age: 81 Gender: M Height: 1.8 m Weight: 97.3 kg Last Vital Signs Temp 36.6 C 05/20/22 07:45 Pulse 58 L 05/20/22 07:45 Resp 16 05/20/22 07:45 BP 152/71 H 05/20/22 07:45 Pulse Ox 97 05/20/22 07:45 O2 Del Method Room Air 05/20/22 07:45 Allergies Allergy/AdvReac Type Severity Reaction Status Date / Time No Known Allergies Allergy Verified 05/20/22 07:31 Home Medications Medication Instructions Recorded Confirmed Type acetaminophen 650 mg 650 mg PO HS 06/23/20 05/20/22 History tablet,extended release aspirin 81 mg tablet,delayed 81 mg PO DAILY 07/28/21 05/20/22 History release metoprolol tartrate 25 mg tablet 12.5 mg PO BID #90 tabs 04/02/22 05/20/22 Rx Patient hx anesthesia problems: none Family hx anesthesia problems: none Results Review: All pre-operative results and documents have been reviewed as part of the pre-operative evaluation. [facility] Past Medical History Medical History BMI 27.0-27.9,adult BMI 29.0-29.9,adult Essential (primary) hypertension Left hip pain Left knee pain Mixed hyperlipidemia Overweight with body mass index (BMI) of 28 to 28.9 in adult Prostate cancer Prostate nodule Surgical History Surgical History History of prostatectomy Family History Family History Mother Family history of malignant neoplasm Grandparent Family history of malignant neoplasm Sibling Family history of malignant neoplasm Father Family history of heart disease in male family member before age 55 Heart disease Social History Social History Smoking packs per day: 1 Smoking cigarettes per day: 20.0 Years smoked: 55 Smoking pack-years: 55.00 Smoking status: Former smoker Tobacco type: cigarettes Second hand tobacco smoke exposure: Yes Smoking end date: 06/06/14 Additional smoking assessment comments: QUIT 2014 Alcohol intake: current Drinks per week: 7 Substance use: never Substance use type: does not use Living arrangements: with family 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 Informed Consent: The patient's anesthetic plan and its attendant risks and benefits were discussed with the patient/family/POA. Questions were solicited and answers provided to the satisfaction of the patient/family/POA.
[2022-05-20] MEDS: LACTATED RINGERS 1,000 ML 30 ML IV CONT (08:20)
[2022-05-20] MEDS: ceFAZolin 2 GM/D5W 50 ML 2 GM/50 ML BAG IVPB (09:36)
[2022-05-20 10:12] VITALS: BP 103/48; PULSE 55; RESP 16; O2SAT 96
--- NOTE | 2022-05-20 10:17 | P.OP_ITS ---
Procedure Note - Detailed Date of Procedure 05/20/22 Pre-op Diagnosis Prostate CA, intrinsic sphincter deficiency Post-op Diagnosis Same Procedure Performed Cystoscopy, Macroplastique plastic injection Surgeon Catalino Judge MD Anesthesia General Description of Procedure The patient was brought to the operative suite where he was prepped and draped in the routine fashion while in the dorsal lithotomy position after the uneventful administration of systemic sedation by the anesthesia department. 2% lidocaine jelly was introduced into the urethra and allowed to stand for an appropriate period of time. Cystoscopy was undertaken with a 19 Romansh rigid cystoscope. There was no evidence of urethral stricture or bladder neck contracture and the prostate is surgically absent. The bladder mucosa was endoscopically normal without hyperemia or neoplasm. Using the Macroplastique delivery system a total of 2 vials were injected just distal to the bladder neck (1/4 delivered at the 3:00 and 9:00 position / ? delivered at the 6:00 position). After each injection the the needle is not withdrawn from the tissue for 15-seconds, allowing time for the agent to solidify. At the termination of the procedure there was good circumferential coaptation of the proximal urethra. After removal of the cystoscope the bladder was drained with a 12F red rubber catheter. The patient tolerated the procedure well and was taken to the outpatient recovery room in good condition. Packing No Pathology None sent Complications No immediate complications
--- NOTE | 2022-05-20 10:21 | W.PM.PROC2 ---
Procedure Note - Detailed Date of Procedure 05/20/22 Pre-op Diagnosis Prostate CA Post-op Diagnosis Other ( Intrinsic sphincter deficiency) Procedure Performed Cysto, Macroplastique Injetion Surgeon Catalino Judge MD Anesthesia MAC
[2022-05-20 10:40] VITALS: BP 158/71; PULSE 54; RESP 16
[2022-05-20 11:10] VITALS: BP 151/80; PULSE 60; RESP 16
== END 2022-05-20 11:10 | disposition home or self-care (01) ==
PROVIDERS: PCP Family Medicine; Visit Provider Urology
PROC: 3E0K8GC Introduction of Other Therapeutic Substance into Genitourinary Tract, Via Natural or Artificial Opening Endoscopic (ICD-10-PCS; CPT 51715; principal; 2022-05-20 09:30)
DX: N36.42 Intrinsic sphincter deficiency (ISD) (principal); I10 Essential (primary) hypertension; E78.2 Mixed hyperlipidemia; Z85.46 Personal history of malignant neoplasm of prostate; Z87.891 Personal history of nicotine dependence
CPT/HCPCS: 51715; A9270; J0690; J2704; J3010; J7120; L8606

== ENCOUNTER 2022-08-12 12:34 | Outpatient (CLI) | payer MEDICARE, SELFPAY ==
--- NOTE | ~2022-08-12 | MM_ITS ---
EXAMINATION: MM diagnostic brigid BI w erik HISTORY: Bilateral subareolar breast masses TECHNIQUE: Craniocaudal, mediolateral, and mediolateral oblique 3-D tomosynthesis images of the breas ts were performed and synthetic 2-D images were generated. CAD analysis was submitted and interpreted . COMPARISON: 09/03/2008 BREAST PARENCHYMAL COMPOSITION: The breasts are almost entirely fatty. FINDINGS: There is flame-shaped subareolar tissue in both breasts. No suspicious mass, calcification, or architectural distortion are identified. IMPRESSION: 1. Findings consistent with bilateral gynecomastia. Clinical follow-up is recommended. BI-RADS Category 2: Benign finding(s). Reviewed, dictated and finalized at location A. SPRING TORQUE TESTER IMPRESSION: 1. Findings consistent with bilateral gynecomastia. Clinical follow-up is recom mended. BI-RADS Category 2: Benign finding(s).
== END 2022-08-12 12:35 | disposition home or self-care (01) ==
PROVIDERS: PCP Family Medicine; Visit Provider Physician Assistant Medical
DX: R92.8 Other abnormal and inconclusive findings on diagnostic imaging of breast (principal)
CPT/HCPCS: 77062; 77066; G0279

== ENCOUNTER 2022-08-13 08:48 | Emergency (ER) | payer MEDICARE, SELFPAY ==
[2022-08-13] VITALS (14 sets, daily range): BP systolic 158–202; BP diastolic 82–126; PULSE 56–64; RESP 8–17; TEMP 36.6; O2SAT 92–98
--- NOTE | ~2022-08-13 | XR_ITS ---
Portable chest x-ray Comparison: 05/08/2020 Clinical History: Lightheadedness, dizziness Findings: There is mild haziness the left lung base, similar to prior exam. Right lung is clear. Ca rdiomediastinal silhouette is stable. Bones and soft tissues are unremarkable. Impression: Probable chronic scarring or other chronic airspace opacity left lung base. Correlate for any possibi lity of acute pneumonia in the left lung base. Reviewed, dictated and finalized at location . UNICATIONS OFFICER Impression: Probable chronic scarring or other chronic airspace opacity left lung base. Cor relate for any possibility of acute pneumonia in the left lung base.
--- NOTE | ~2022-08-13 | US_ITS ---
Duplex Sonography of the bilateral lower extremities: Indication: Swelling Sagittal and transverse B-mode images as well as color-flow imaging were performed on the right and l eft femoral and popliteal veins. B-mode examination was done without and with compression in the tra nsverse plane. There is good visualization of the bilateral common femoral, proximal profunda femora l, superficial femoral, greater saphenous, and popliteal veins. Normal flow was seen on color-flow im aging. Normal compressibility was demonstrated. Bilateral posterior tibial and peroneal veins also a ppear patent. Impression: No evidence of deep vein thrombosis involving either lower extremity. Reviewed, dictated and finalized at location M. HOUSE SUPERVISOR Impression: No evidence of deep vein thrombosis involving either lower extremit y.
--- NOTE | ~2022-08-13 | CT_ITS ---
EXAMINATION: CT brain wo con DATE: 08/13/2022 10:04 INDICATION: Dizziness TECHNIQUE: Computed tomography (CT) of the head was performed without intravenous contrast. The mA wa s adjusted according to patient size. Iterative reconstruction technique was employed. Exam dose: 60 5.33 mGy-cm total exam DLP. COMPARISON: None FINDINGS: There is moderate cerebellar and cerebral volume loss. Bilateral prominent carotid siphon internal carotid artery calcifications and lesser vertebral and ba silar artery calcification. Is nonspecific diminished attenuation of the cerebral white matter, likel y due to chronic small vessel ischemic changes. No intracranial mass lesion or hemorrhage or cerebrovascular accident is evident. No midline shift or mass effect. No subdural or epidural hematoma. No fracture or bone destruction of the cranial vault. The mastoid air cells and included paranasal si nuses are normally developed and aerated. IMPRESSION: Cerebral atherosclerosis and chronic small vessel ischemic changes of the cerebral white matter Moderately prominent cerebral and cerebellar volume loss No acute intracranial abnormality Reviewed, dictated and finalized at Location A. Reviewed, dictated and finalized at location B. UE CARVER
--- NOTE | ~2022-08-13 | CT_ITS ---
EXAMINATION: CTA chest PE protocol DATE: 08/13/2022 11:26 INDICATION: Shortness of breath, elevated d-dimer. Dizziness. TECHNIQUE: Computed tomography angiography (CTA) of the chest was performed with 100 mL Omnipaque-350 intravenous contrast timed to evaluate the pulmonary arteries. Coronal maximum intensity projection 3D-reconstructions were created by the technologist. Automated exposure control and iterative reconst ruction technique were employed. Exam dose: 576.78 mGy-cm total exam DLP. COMPARISON: 08/13/2022 portable AP chest FINDINGS: There is diagnostic contrast enhancement of the pulmonary arteries and no evidence of pulmo nary embolism. No thoracic aortic aneurysm or dissection. No hilar or mediastinal mass lesion or lymphadenopathy. Normal heart size. No pericardial or pleural effusion. There is discoid atelectasis and/or scarring of the lingula and both lower lobes. Bilateral lower lob e dependent infiltrate and/atelectasis. Prominent degenerative spurring in the lower thoracic spine. No suspicious osteolytic or osteoblastic lesions. IMPRESSION: No evidence of pulmonary embolism Bilateral lower lobe dependent infiltrate and/atelectasis Discoid atelectasis or scarring of the lingula and both lower lobes Reviewed, dictated and finalized at Location A. Reviewed, dictated and finalized at location B. Y INTERVENTION SPECIALIST
--- NOTE | 2022-08-13 08:58 | ECG_ITS ---
Measurements Intervals [place] Rate: 57 P: 42 VA: 163 QRS: 23 QRSD: 82 T: 22 QT: 415 QTc: 407 Interpretive Statements SINUS BRADYCARDIA WITH SINUS ARRHYTHMIA POSSIBLE LEFT ATRIAL ENLARGEMENT RSR' IN V1 OR V2, PROBABLY NORMAL VARIANT BASELINE ARTIFACT- I, III, AVR, AVL BORDERLINE ECG COMPARED TO ECG 05/18/2022 08:44:38 SINUS BRADYCARDIA NOW PRESENT Electronically Signed On 08-13-2022 10:16:45 MICROSOFT APPLICATION DEVELOPER by Max Hernandez D.O.
[2022-08-13 09:11] LABS: Basophils Percent Auto 0.3 % (0.2-1.2); Eosinophils Absolute Auto 0.1 K/mm3 (0-0.3); Eosinophils Percent Auto 1.6 % (0-4.4); Hemoglobin 14.1 g/dL (14.0-18.0); Immature Granulocyte Absolute 0.03 K/mm3 (0.00-0.031); Immature Granulocyte Percent A 0.5 % (0-0.5); Lymphocytes Absolute Auto 0.59 K/mm3 (0.9-3.2); Lymphocytes Percent Auto 9.7 % (18.3-44.2); Mean Corpuscular Hemoglobin 32.6 pg (26-34); Mean Corpuscular Volume 101.9 fl (80-100); Mean Platelet Volume 8.8 fl (7.4-10.4); Monocytes Absolute Auto 0.6 K/mm3 (0.1-0.6); Monocytes Percent Auto 10.5 % (2.6-8.5); Neutrophils Absolute Auto 4.7 K/mm3 (1.3-6.7); Neutrophils Percent Auto 77.4 % (45.5-73.1); Platelet Count Result 202 k/mm3 (150-375); Red Blood Count 4.32 M/mm3 (4.6-6.20); White Blood Count 6.1 K/mm3 (4.5-10.0)
--- NOTE | 2022-08-13 09:13 | ED.DIZZY ---
HPI - Dizziness General Chief Complaint: Syncope Stated Complaint: light headed, dizziness for 2 weeks Time Seen by Provider: 08/13/22 09:10 Source: patient Mode of arrival: ambulatory Limitations: no limitations History of Present Illness HPI Narrative: This is a 81-year-old male that presents to the emergency department for dizziness ongoing over the last several weeks. Reports every night when he lays down on his side he experiences brief room spinning dizziness. This does resolve after about 30 seconds without intervention. He is able to fall asleep. Reports today when he got up he was feeling lightheaded which prompted him to be seen. Does report some mild shortness of breath. Reports a chronic cough due to sinus issues. Blood pressure noted to be elevated on arrival. Does report he took his blood pressure medication this morning. Denies fever, vision changes, chest pain, weakness, numbness, dysuria. Related Data Home Medications Medication Instructions Recorded Confirmed acetaminophen 650 mg 650 mg PO HS 06/23/20 05/25/22 tablet,extended release aspirin 81 mg tablet,delayed 81 mg PO DAILY 07/28/21 05/25/22 release Allergies Allergy/AdvReac Type Severity Reaction Status Date / Time No Known Allergies Allergy Verified 07/06/22 07:34 Review of Systems Review of Systems: CONSTITUTIONAL: Denies fever EYES: Denies visual changes CARDIOVASCULAR: Reports edema. Denies chest pain RESPIRATORY: Reports cough and dyspnea. GASTROINTESTINAL: Denies abdominal pain, nausea, vomiting GENITOURINARY: Denies dysuria NEUROLOGIC: Denies headache, numbness, or weakness. All systems reviewed & are unremarkable except as noted in HPI and below PMFSH Past Medical History Medical History BMI 27.0-27.9,adult BMI 29.0-29.9,adult BMI greater than 30 Essential (primary) hypertension Left hip pain Left knee pain Mixed hyperlipidemia Overweight with body mass index (BMI) of 28 to 28.9 in adult Prostate cancer Prostate nodule Surgical History Surgical History History of prostatectomy Family History Family History Mother Family history of malignant neoplasm Grandparent Family history of malignant neoplasm Sibling Family history of malignant neoplasm Father Family history of heart disease in male family member before age 55 Heart disease Social History Social History Smoking packs per day: 1 Smoking cigarettes per day: 20.0 Years smoked: 55 Smoking pack-years: 55.00 Smoking status: Former smoker Tobacco type: cigarettes Second hand tobacco smoke exposure: Yes Smoking end date: 06/06/14 Additional smoking assessment comments: QUIT 2014 Alcohol intake: current Drinks per week: 7 Substance use: never Substance use type: does not use Living arrangements: with family Occupation/Education: retired 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 HEAD: Normocephalic, atraumatic. EYES: PERRLA and EOMI. ENT: Nares clear, no rhinorrhea or epistaxis. Mucous membranes moist. Oropharynx without tonsillar hypertrophy exudate or other lesions. Bilateral TMs pearly pang non-bulging NECK: Supple. No adenopathy or masses. No JVD CHEST: Clear to auscultation. No respiratory distress. No wheezes rales or rhonchi HEART: Regular rate and rhythm. No murmur heard. Normal peripheral pulses. ABDOMEN: Soft, nontender, nondistended, normal active bowel sounds. EXTREMITIES: Normal range of motion. 1+ pitting edema to the left lower extremity. 1+ DP pulses bilaterally. SKIN: Warm, dry, no rash. NEUR
[2022-08-13 09:32] LABS: Alanine Aminotransferase 15 U/L (6-50); Albumin Level 4.1 g/dL (3.5-5.1); Alkaline Phosphatase 65 U/L (38-126); Anion Gap 6 mmol/L (8-16); Aspartate Amino Transferase 22 U/L (17-59); Bilirubin,Total 0.5 mg/dL (0.2-1.3); Blood Urea Nitrogen 20 mg/dL (9-20); Calcium 8.5 mg/dL (8.4-10.2); Carbon Dioxide 26 mmol/L (22-30); Chloride 106 mmol/L (98-107); Estimated CRCL calculation 72 ml/min; Estimated Glomerular Filt Rate > 60; Glucose 94 mg/dL (65-110); Potassium 4.7 mmol/L (3.4-5.0); Sodium 138 mmol/L (137-145)
[2022-08-13 09:32] LABS: NT Pro B Type Natriuretic Pept 399 pg/mL (19.9-100)
[2022-08-13 10:19] LABS: Partial Thromboplastin Time 25.6 SECONDS (22.3-36.8); Prothrombin Time 12.8 Seconds (11.1-14.7)
[2022-08-13 10:45] LABS: D Dimer 0.53 ug/mL (<0.48)
[2022-08-13] MEDS: SODIUM CHLORIDE 0.9% IV 500 ML 999 ML IV CONT (11:42)
[2022-08-13 11:50] LABS: Appearance Urine Cloudy (Clear); Bacteria Urine None Seen /hpf; Bilirubin Urine Negative (Negative); Blood Urine 1+ (Negative); Color Urine Yellow (Yellow); Glucose Urine UA Negative (Negative); Ketones Urine Negative (Negative); Leukocyte Esterase Ur Negative LEU/UL (Negative); Nitrate Urine Negative (Negative); Non Pathogenic Casts 0-2; Protein Urine Negative (Negative); RBC Urine 0-2 /hpf (0-2); Specific Grav Ur 1.013 (1.001-1.035); Squamous Epithelial Cell Urine None seen /hpf (Few); Urobilinogen Urine 0.2 mg/dL (<2.0); WBC Urine 0-5 /hpf
[2022-08-13 11:58] LABS: Add Urine Microscopic? YES
== END 2022-08-13 13:48 | disposition home or self-care (01) ==
PROVIDERS: Emergency Medicine; Emergency Provider Physician Assistant; PCP Family Medicine
DX: R42 Dizziness and giddiness (principal); I10 Essential (primary) hypertension; R00.1 Bradycardia, unspecified; F17.210 Nicotine dependence, cigarettes, uncomplicated; R06.02 Shortness of breath
CPT/HCPCS: 36415; 70450; 71045; 71275; 80053; 81001; 83880; 85025; 85380; 85610; 85730; 93005; 93970; 96360; 99284; J7040; Q9967

== ENCOUNTER 2022-11-29 13:39 | Outpatient (CLI) | payer MEDICARE, SELFPAY ==
--- NOTE | ~2022-11-29 | PE_ITS ---
EXAMINATION: PET_PETPSMAST_PT DATE: 11/29/2022 15:53 INDICATION: Prostate cancer TECHNIQUE: 9.185 mCi of pipflufolastat F-18 (18-F-DCFPyL) was administered i.v. Low dose computed to mography (CT) images were acquired from the base of the brain to the base of the brain to the proxima l thighs for attenuation correction and anatomic localization. Positron emission tomography (PET) brynn ges were acquired in the same distribution beginning 96 minutes after injection. Images including fus ed PET/CT images were reconstructed in axial, coronal, and sagittal planes. Automated exposure contro l technique was employed. The dose-length product was 585.86mGy-cm. COMPARISON: None FINDINGS: Head/neck: Typical pattern of symmetric physiologic increased activity in the lacrimal, parotid and submandibula r glands as well as along the mucosa of the nasal and oral cavities, the deyanira-, naso- and hypopharynx, the glottis and esophagus. There is increased PSMA uptake associated with a subcapsular left submand ibular lymph node with maximal SUV of 11.1 and a couple subcentimeter left supraclavicular lymph node s with maximal SUV values of 10.7 and 7.2. Chest: Bilateral PSMA avid axillary lymphadenopathy, 3 on the right and 2 on the left with maximum PSA level s ranging between 5.1 and 22.9, the largest at the left axilla measuring up to 1.5 cm in maximal shor t axis diameter. There are also at least 13 PSMA avid mediastinal and bilateral hilar lymph nodes wit h maximal SUV values from 3.3-18. Mild elevation the left hemidiaphragm. Mild discoid atelectasis in the lingula and bilateral lower lobes. No suspicious pulmonary nodules or pleural effusion. Heart siz e is normal. No pericardial effusion. Thoracic aorta is normal in caliber. Abdomen/pelvis/proximal thighs: Physiologic renal accumulation and excretion of activity in the kidneys, bladder and along portions o f ureters. Postoperative change of prior prostatectomy. No evident locally recurrent disease. There i s scarring in the presacral space without increased PSMA uptake and suggestion of prior bilateral pel austen lymph node dissections. No PSMA avid pelvic lymphadenopathy. There are however at least 7 PSMA av id but still normal-sized retroperitoneal lymph nodes about the aorta above the level of the renal ar teries with maximal SUV values of between 11.3 and 28.7. Tiny fat-containing umbilical hernia. Normal degree and slightly heterogenous pattern of increased uptake throughout the liver and spleen without radiologic correlate or dominant PSMA avid lesion. The gallbladder, pancreas and bilateral adrenal g lands are normal. Moderate uptake scattered throughout the bowels with typical duodenal and proximal jejunal predominance and without radiologic correlate, also likely physiologic. There is mild colonic diverticulosis with a sigmoid predominance. There is no adjacent inflammatory change to suggest div erticulitis. Musculoskeletal: No suspicious lytic, blastic or PSMA avid bone lesions identified. IMPRESSION: 1. Multiple prominently PSMA avid predominantly normal-sized lymph nodes in the upper abdomen, bilate ral alex and mediastinum, bilateral axilla and left side of the head and neck consistent with metasta tic disease. The largest left axillary lymph node would be amenable to ultrasound-guided biopsy if pa thologic correlation is required. Reviewed, dictated and finalized at location A. IMPRESSION: 1. Multiple prominently PSMA avid predominantly normal-sized lymph nodes in the upper abdomen, bilateral alex and mediastinum, bilateral axilla and left side of the head and neck consistent with metastatic disease. The largest left axill ashanti lymph node would be amenable to ultrasound-guided biopsy if pathologic roxy elation is required.
== END 2022-11-29 13:40 | disposition home or self-care (01) ==
PROVIDERS: PCP Family Medicine; Visit Provider Urology
DX: C61 Malignant neoplasm of prostate (principal); R97.20 Elevated prostate specific antigen [PSA]
CPT/HCPCS: 78815; A9595

== ENCOUNTER 2023-01-05 09:15 | Outpatient (CLI) | payer MEDICARE, SELFPAY ==
--- NOTE | ~2023-01-05 | US_ITS ---
EXAMINATION: US_BXSTAXLIMG_US DATE: 01/05/2023 10:23 INDICATION: Prostate cancer with PSMA avid lymph nodes on PET CT suspicious for metastatic disease TECHNIQUE: The procedure including the risks and benefits was discussed with the patient. Risks discu ssed included bleeding and infection. The patient understood the risks and agreed to proceed. The sk in overlying the right axilla was prepped and draped in usual sterile fashion. Anesthetic was admini stered with 1% lidocaine subcutaneously. An 18 gauge core biopsy needle was advanced under continuou s ultrasound observation to the lymph node of interest. 4 core biopsy specimens were obtained. The needle was removed and the entry site was cleaned and dressed. Post procedure ultrasound demonstrate d no hemorrhage. FINDINGS: Ultrasound images demonstrate needles advanced into the 2.2 x 2.1 x 2.0 cm left axillary ly mph node of concern identified on prior PET/CT. IMPRESSION: 1. Successful Ultrasound-guided biopsy of the 2.2 cm left axillary lymph node of concern. Reviewed, dictated and finalized at location A. IMPRESSION: 1. Successful Ultrasound-guided biopsy of the 2.2 cm left axillary lymph node o f concern.
== END 2023-01-05 09:16 | disposition home or self-care (01) ==
PROVIDERS: PCP Family Medicine; Visit Provider Urology
DX: C61 Malignant neoplasm of prostate (principal); C77.3 Secondary and unspecified malignant neoplasm of axilla and upper limb lymph nodes
CPT/HCPCS: 20999; 76942; 88305; 88342

== ENCOUNTER 2024-11-12 16:39 | Outpatient (CLI) | payer MEDICARE, SELFPAY ==
--- NOTE | ~2024-11-12 | US_ITS ---
BILATERAL LOWER EXTREMITY VENOUS ULTRASOUND Ordering provider: Kristen Dumont, PAC History: . M79.89 - Other specified soft tissue disorders . Comparison: None. FINDINGS: RIGHT LOWER EXTREMITY VEINS: --COMMON FEMORAL: Patent and free of thrombus. Normal compressibility, phasic flow and augmentation. --PROXIMAL SUPERFICIAL FEMORAL: Patent and free of thrombus. Normal compressibility, phasic flow and augmentation. --DISTAL SUPERFICIAL FEMORAL: Patent and free of thrombus. Normal compressibility, phasic flow and au gmentation. --POPLITEAL: Patent and free of thrombus. Normal compressibility, phasic flow and augmentation. --POSTERIOR TIBIAL: Patent and free of thrombus. Normal compressibility, phasic flow and augmentation . LEFT LOWER EXTREMITY VEINS: --COMMON FEMORAL: Patent and free of thrombus. Normal compressibility, phasic flow and augmentation. --PROXIMAL SUPERFICIAL FEMORAL: Patent and free of thrombus. Normal compressibility, phasic flow and augmentation. --DISTAL SUPERFICIAL FEMORAL: Patent and free of thrombus. Normal compressibility, phasic flow and au gmentation. --POPLITEAL: Patent and free of thrombus. Normal compressibility, phasic flow and augmentation. --POSTERIOR TIBIAL: Patent and free of thrombus. Normal compressibility, phasic flow and augmentation . IMPRESSION: Negative bilateral lower extremity venous US. No deep vein thrombosis. Reviewed, dictated and finalized at location A.
--- OUTSIDE RECORDS SUMMARY | 2024-11-12 16:50 | XMS_ITS | Encounter Summary ---
Author Organization [facility] Address [address] [place] [address] Phone Care Team Providers Care Computer Systems Consultant Name Role Phone Jareth Gifford MD Primary Care Provider Travis Jha MD Unavailable [phone] Encounter Details Date Type Department Care Team (Late st Contact Info) Description 11/12/2024 [address] [facility] [address] [place] [address] Travis Jha MD [address] [place] [address] Social History Tobacco Use Types Packs/Day Years Used Date Smoking Tobacco: Former Cigarettes Smokeless Tobacco: Never Alcohol Use Standard Drinks/Week Comments Yes 1 (1 standard drink = 0.6 oz pur e alcohol) per day Sex and Gender Information Value Date Recorded Sex Assigned at Not on file Legal Sex Male 1:56 PM CDT Gender Identity Not on file Sexual Orientation Not on file documented as of this encounter Miscellaneous Notes * Telephone Encounter - Jaida Schwartz RN - 11/12/2024 3:26 PM CDT Attempted to call patient. No answer, left voicemail to return call to clinic * Telephone Encounter - Jaida Schwartz RN - 11/12/2024 3:23 PM CDT Images from the original note were not included. Travis Jha MD to [facility] Nurse Pool (Selected Message) MW 11/12/24 2:45 PM Looks ok, was supposed to do it in january ?? * Telephone Encounter - Jaida Schwartz RN - 11/12/2024 2:35 PM CDT CANOPY: patient wants to know the results of the CT he had done a couple weeks ago. #[id number] Care Everywhere updated Report in imaging tab. Competed 11/02/24 documented in this encounter Plan of Treatment Upcoming Encounters Date Type Department Care Team (Late st Contact Info) Description 01/17/2025 1:15 PM CDT Office Visit [facility] [place] [address] [address] Travis Jha MD [address] [place] [address] documented as of this encounter Visit Diagnoses Not on filedocumented in this encounter Care Teams Computer Systems Consultant Relationship Specialty Start Date End Date Jareth Gifford MD [address] [facility] [place] [address] PCP - General Family Medicine 03/22/24 Travis Jha MD [address] [place] [address] Consulting Physician Oncology 03/22/24 documented as of this encounter
--- OUTSIDE RECORDS SUMMARY | 2024-11-12 16:50 | XMS_ITS | Clinical Summary ---
Author Organization [facility] Address [address] [place] [address] Phone Care Team Providers Care Structural Manager Name Role Phone Jareth Gifford MD Primary Care Provider [phone] Travis Jha MD Unavailable [phone] Allergies No known active allergies Medications metoprolol tartrate (LOPRESSOR) 25 MG Tablet Take 12.5 mg by mouth 2 times daily. Active Enzalutamide 80 MG Tablet Take 40 mg by mouth. 2 tablets in the morning and 2 tablets in the evening Active aspirin EC 81 MG Tablet Delayed Response Take 81 mg by mouth. Active QC ACETAMINOPHEN 8HR ARTH PAIN PO Take 650 mg by mouth. Active ferrous sulfate 325 (65 Fe) MG Tablet Take 1 Tablet by mouth every other day. 30 Tablet Active Additional Information Patient not taking.Reported on 10/18/2024 pregabalin (LYRICA) 150 MG Capsule Take 150 mg by mouth 2 times daily. Active meclizine (ANTIVERT) 12.5 MG Tablet Take 12.5 mg by mouth every 8 hours as needed for Dizziness. Active Specialty Vitamins Products (NERVIVE NERVE RELIEF PO) Take by mouth. Acti ve Active Problems Problem Noted Date Diagnosed Date HTN (hypertension) 10/18/2024 Elevated blood pressure reading 04/05/2024 Encounters Date Type Department Care Team Description 11/12/2024 Telephone [facility] [address] [phone] Travis Jha MD 10/19/2024 Telephone [facility] [address] [phone] Travis Jha MD 10/18/2024 1:15 PM CDT Lab [facility] [address] [place] [phone] Nurse, [facility] Malignant neoplasm of ascending colon (HCC) (Primary Dx) 10/18/2024 1:00 PM CDT Office Visit [facility] [address] [place] [phone] Jaqueline Sellers, BRICKMASON CONTRACTOR, BEEF GRINDER Malignant neoplasm of ascending colon (HCC) (Primary Dx) 10/18/2024 Travel from Last 3 Months Family History Relation Name Status Comments Child 1 Alive Child 2 Alive Father Mother Sister 1 Alive Sister 2 Alive Social History Tobacco Use Types Packs/Day Years Used Date Smoking Tobacco: Former Cigarettes Smokeless Tobacco: Never Tobacco Cessation:Counseling Given: Not Answered Alcohol Use Standard Drinks/Week Comments Yes 1 (1 standard drink = 0.6 oz pur e alcohol) per day Sex and Gender Information Value Date Recorded Sex Assigned at Not on file Legal Sex Male 1:56 PM CDT Gender Identity Not on file Sexual Orientation Not on file Last Filed Vital Signs Vital Sign Reading Time Taken Comments Blood Pressure 150/90 10/18/2024 12:53 PM CDT Pulse 83 10/18/2024 12:53 PM CDT Temperature 35.9 C (96.7 F) 10/18/2024 12:53 PM CDT Respiratory Rate 18 10/18/2024 12:53 PM CDT Oxygen Saturation 95% 10/18/2024 12:53 PM CDT Inhaled Oxygen Concentration - - Weight 88.5 kg (195 lb) 10/18/2024 12:53 PM CDT Height 180.3 cm (5' 11) 10/18/2024 12:53 PM CDT Body Mass Index 27.2 10/18/2024 12:53 PM CDT Plan of Treatment Upcoming Encounters Date Type Department Care Team (Late st Contact Info) Description 01/17/2025 1:15 PM CDT Office Visit [facility] [place] [address] [facility] [address] [place] [address] Travis Jha MD [address] [place] [address] Health Maintenance Due Date Last Done Comments Hepatitis C Virus (HCV) Screening 1940 Pneumococcal Immunization (50+ years) (1 of 2 - PCV) 1961 Respiratory Syncytial Virus (RSV) Immunization (Adult) (1 - 1-dose 75+ series) 2017 SARS-COV-2 Immunization ( season) 2024 05/18/2024, 04/05/2022, 11/14/2021, Additional history exists TdaP Immunization Completed 01/21/2021 Zoster Immunization Completed 09/16/2022, Influenza Immunization Completed 05/18/2024, 2019 Hepatitis B Immunization Aged Out No longer eligible based on patient's age to complete this topic Human Papillomavirus (HPV) Immunization Aged Out No longer eligible based on patient's age to complete this topic Meningococcal Immunization (ACWY) Aged Out No longer eligible based on patient's age to complete this topic Rotavirus Immunization Aged Out No lo nger eligible based on patient's age to complete this topic Procedures Procedure Name Priority Date/Time Associated Diagnosis Comments FOLIC ACID (FOLATE) Routine 10/18/2024 1 :15 PM CDT Malignant neoplasm of ascending colon (HCC) VITAMIN B12 Routine 10/18/2024 1:15 PM CDT Malignant neoplasm of ascending colon (HCC) CARCINOEMBRYONIC ANTIGEN (CEA) Routine 10/18/2024 1:15 PM CDT Malignant neoplasm of ascending colon (HCC) IRON W/ IRON BINDING CAPACITY OH Routine 10/18/2024 1:15 PM CDT Malignant neoplasm of ascending colon (HCC) FERRITIN Routine 10/18/2024 1:15 PM CDT Malignant neoplasm of ascending colon (HCC) LACTATE DEHYDROGENASE (LD) Routine 10/18/2024 1:15 PM CDT Malignant neoplasm of ascending colon (HCC) CMP (COMPREHENSIVE METABOLIC PANEL) Routine 10/18/2024 1:15 PM CDT Malignant neoplasm of ascending colon (HCC) COMPLETE BLOOD COUNT (CBC) WITH DIFF Routine 10/18/2024 1:15 PM CDT Malignant neoplasm of ascending colon (HCC) from Last 3 Months Results * IRON W/ IRON BINDING CAPACITY [place] (10/18/2024 1:15 PM CDT) IRON 161 50 - 212 ug/dL [facility] UIBC 194 155 - 355 ug/dL [facility] TIBC 355 261 - 478 ug/dl [facility] % Saturation 45 20 - 50 % [facility] 10/18/2024 1:15 PM CDT [facility] - 10/19/2024 9:41 AM CDT Release to patient->Immediate us Jaqueline Sellers APRN, BEEF GRINDER LAB SEND OUTS Final Result Performing Organization Address [facility]/ZIP Co de Phone Number [facility] [place] [address], [place] [phone] * VITAMIN B12 (10/18/2024 1:15 PM CDT) Vitamin B12 284 180 - 914 pg/mL [facility] Blood 10/18/2024 1:15 PM CDT [facility] - 10/19/2024 3:06 PM CDT Release to patient->Immediate us Jaqueline Sellers APRN, BEEF GRINDER CHEMISTRY ORDERABLES Final Result [facility] [place] [address] [place] [address], [place] [phone] * LACTATE DEHYDROGENASE (LD) (10/18/2024 1:15 PM CDT) LDH 141 140 - 271 U/L [facility] Blood 10/18/2024 1:15 PM CDT Narrative [facility] - 10/19/2024 9:41 AM CDT Release to patient->Immediate us Jaqueline Sellers APRN, BEEF GRINDER CHEMISTRY ORDERABLES Final Result [facility] [address] [place] [address], [place] [phone] * FOLIC ACID (FOLATE) (10/18/2024 1:15 PM CDT) Folate 17.38 >=5.90 ng/mL [facility] Blood 10/18/2024 1:15 PM CDT [facility] - 10/19/2024 3:06 PM CDT Release to patient->Immediate us Jaqueline Sellers BRICKMASON CONTRACTOR, BEEF GRINDER CHEMISTRY ORDERABLES Final Result [facility] [place] [address] [place] [address], [place] [phone] * FERRITIN (10/18/2024 1:15 PM CDT) Ferritin 51 24 - 336 ng/mL [facility] Blood 10/18/2024 1:15 PM CDT [facility] - 10/19/2024 3:06 PM CDT Release to patient->Immediate us Jaqueline Sellers BRICKMASON CONTRACTOR, BEEF GRINDER CHEMISTRY ORDERABLES Final Result [facility] [address], * (ABNORMAL) CMP (COMPREHENSIVE METABOLIC PANEL) (10/18/2024 1:15 PM CDT) Glucose 101 70 - 105 mg/dL [facility] Blood Urea Nitrogen 27(H) 7 - 25 mg/dL [facility] Creatinine 0.9 0.7 - 1.3 mg/dL [facility] Sodium 138 136 - 145 mEq/L [facility] Potassium 4.1 3.5 - 5.1 mEq/L [facility] Chloride 107 98 - 107 mEq/L [facility] Bicarbonate 25 21 - 31 mEq/L [facility] Total Bilirubin 0.4 0.3 - 1.0 mg/dL [facility] Alk. Phosphatase 78 34 - 104 U/L [facility] Aspartate Aminotransferase 12(L) 13 - 39 U/L [facility] Alanine Aminotransferase 6(L) 7 - 52 U/L [facility] Total Protein 6.3(L) 6.4 - 8.9 g/dL [facility] Albumin 3.9 3.5 - 5.7 g/dL [facility] Calcium 8.8 8.6 - 10.3 mg/dL [facility] Anion Gap 10.1 7.0 - 15.0 mEq/L [facility] Globulin 2.4 2.0 - 3.5 g/dL [facility] EGFR 85 >60 ml/min/1. 73m2 [facility] Comment: This eGFR is calculated using 2020 CKD-EPI Creatinine equation without race modifier based on the NKF-ASN task force recommendations Equation: aRXB=908*min(SCr/k,1)a*max(SCr/k,1)-1.200*0.9938Age*1.012 (if female), where SCr is serum creatinine, k is 0.7 for females and 0.9 for males, and a is -0.241 for females and -0.302 for males Blood 10/18/2024 1:15 PM CDT Narrative [facility] - 10/19/2024 9:41 AM CDT Release to patient->Immediate IS THE PATIENT REQUIRED TO BE FASTING FOR 8 HOURS?->No Jaqueline Sellers BRICKMASON CONTRACTOR, BEEF GRINDER CHEMISTRY ORDERABLES Final Result [facility] [address], [place] [phone] * (ABNORMAL) COMPLETE BLOOD COUNT (CBC) WITH DIFF (10/18/2024 1:15 PM CDT) WBC 3.2(L) 4.0 - 10.0 10*3/uL [facility] HGB 14.2 13.7 - 17.5 g/dL [facility] HCT 43.8 40.1 - 51.0 % [facility] PLT 215 163 - 369 10*3/uL [facility] MPV 9.5 9.4 - 12.4 fL [facility] RBC 4.29(L) 4.63 - 6.08 10*6/uL [facility] MCV 102(H) 79 - 95 fL [facility] MCH 33.1(H) 25.6 - 32.2 pg [facility] MCHC 32.4 32.2 - 36.5 g/dL [facility] RDW 12.6 11.6 - 14.4 % [facility] Absolute Neutrophil Count 1,965 cells/uL [facility] Absolute Seg Count 1,965 1,440 - 6,600 cells/uL [facility] Absolute Lymph Count 761 760 - 4,000 cells/uL [facility] Absolute [place] Count 254 160 - 1,200 cells/uL [facility] Absolute Eos Count 190 0 - 300 cells/uL [facility] Segmented Neutrophils 62 36 - 66 % [facility] Lymphocytes 24 19 - 40 % [facility] Monocytes 8 4 - 12 % [facility] Eosinophils 6(H) 0 - 3 % [facility] WBC Estimate Low [facility] Platelet Estimate Normal [facility] RBC Morphology Abnormal [facility] Macrocytosis 1+ [facility] Blood 10/18/2024 1:15 PM CDT Narrative [facility] - 10/19/2024 9:16 AM CDT Release to patient->Immediate Jaqueline Sellers APRN, BEEF GRINDER HEMATOLOGY ORDERABLES Final Result [facility] [address] [address], [place] [phone] * CARCINOEMBRYONIC ANTIGEN (CEA) (10/18/2024 1:15 PM CDT) CEA 1.1 0.0 - 5.0 ng/mL [facility] Comment: Anu Paramagnetic Particle Chemiluminescent Immunoassay Method Blood 10/18/2024 1:15 PM CDT Narrative [facility] - 10/19/2024 3:06 PM CDT Release to patient->Immediate IS THE PATIENT REQUIRED TO BE FASTING FOR 8 HOURS?->No Jaqueline Sellers APRN, BEEF GRINDER CHEMISTRY ORDERABLES Final Result [facility] [address] [address], [place] [phone] from Last 3 Months [facility] Directives Documents on File Type Date Recorded Patient Employment Advisor Expl anation POLST/POST/NE DNR 03/22/2024 2:05 PM Care Teams Structural Manager Relationship Specialty Start Date End Date Jareth Gifford [place] [address] [address] PCP - General Family Medicine 03/22/24 Travis Jha [place] [address] [address] Consulting Physician Oncology 03/22/24
== END 2024-11-12 16:40 | disposition home or self-care (01) ==
PROVIDERS: PCP Family Medicine; Visit Provider Physician Assistant Medical
DX: M79.89 Other specified soft tissue disorders (principal); M79.662 Pain in left lower leg
CPT/HCPCS: 93970